=== PATIENT | female | born 1990 | race Caucasian/White ===

== ENCOUNTER 2018-08-13 17:40 | Inpatient (IN) ==
[2018-08-13] MEDS ORDERED: *HR* OxyCODONE/APAP 5/325 TABLET PO ONE (18:19)
[2018-08-13 18:53] LABS: Basophils % 0.2 %; Immature Granulocytes % 0.3 % (0-4); Monocytes # 0.7 K/mcL (0.0-1.3); Monocytes % 5.6 %
[2018-08-13] MEDS ORDERED: *HR* FentaNYL (PF) 100 MCG/2 ML VIAL IVP ONE (18:54)
[2018-08-13] MEDS ORDERED: Ondansetron 4 MG/2 ML VIAL IVP ONE (18:55)
--- NOTE | 2018-08-13 18:56 | Emergency Department Note ---
Disposition Clinical Impression: Abdominal pain Qualifiers: Abdominal location: generalized Qualified Code(s): R10.84 - Generalized abdominal pain Ovarian cyst Qualifiers: Laterality: right Qualified Code(s): N83.201 - Unspecified ovarian cyst, right side Disposition: Admitted As Inpatient Condition: Fair Referrals: Gertrude Browning LOG GRADER [Primary Care Provider] - Forms: ED Satisfaction Letter, Work/School Release Time of Disposition: 21:43 General Adult HPI - General Chief complaint: ED Abdominal Pain Stated complaint: abd pain Time Seen by Provider: 08/13/18 17:46 Source: patient Limitations: no limitations - History of Present Illness Pain Scale: 7 - Related Data Previous Rx's Medication Instructions Recorded Ondansetron ODT [Zofran ODT] 4 mg SL Q4HR PRN #20 tab.rapdis 08/12/18 Allergies Allergy/AdvReac Type Severity Reaction Status Date / Time No Known Allergies Allergy Verified 08/12/18 01:03 Past Medical History - Past Medical History Medical history: Reports: no medical history Psychiatric history: Reports: no psych history - Social History Smoking Status: Never smoker Smokeless Tobacco Status: No Alcohol use: Reports: none Drug use: Reports: none Physical Exam - General Limitations: no limitations General appearance: alert, in no apparent distress Course Vital Signs Temperature 98.2 F 08/13/18 17:42 Pulse Rate 121 08/13/18 17:42 Respiratory Rate 18 08/13/18 17:42 Blood Pressure 128/78 08/13/18 17:42 O2 Sat by Pulse Oximetry 95 08/13/18 17:42 Temperature 98.2 F 08/13/18 17:42 Pulse Rate 91 08/13/18 20:06 Respiratory Rate 16 08/13/18 20:06 Blood Pressure 117/83 08/13/18 20:06 O2 Sat by Pulse Oximetry 98 08/13/18 20:06 Oxygen Delivery Oxygen Delivery Room Air Medical Decision Making - Lab Data Result diagrams: 08/13/18 18:29 08/13/18 18:29 Lab Results 08/13/18 08/13/18 08/13/18 Range/Units 18:29 18:29 19:06 WBC 12.9 H (4.3-11.1) K/mcL RBC 5.06 H (3.82-4.97) M/mcL Hgb 11.3 L (11.5-15.4) g/dL Hct 36.8 (35.3-44.9) % MCV 72.7 L (83.0-100.0) fL MCH 22.3 L (28.0-33.3) pg MCHC 30.7 L (31.6-35.5) g/dL RDW 18.0 H (11.5-14.5) % Plt Count 299 (140-400) K/mcL MPV 10.3 (9.4-12.4) fL Immature Gran % 0.3 (0-4) % Seg Neutrophils % 80.8 % Lymphocytes % 12.1 % Monocytes % 5.6 % Eosinophils % 1.0 % Basophils % 0.2 % Neutrophils # 10.4 H (1.6-8.9) K/mcL Lymphocytes # 1.6 (0.6-4.6) K/mcL Monocytes # 0.7 (0.0-1.3) K/mcL Eosinophils # 0.1 (0.0-0.6) K/mcL Basophils # 0.0 (0.0-0.2) K/mcL Sodium 139 (136-145) mEq/L Potassium 3.7 (3.5-5.1) mEq/L Chloride 106 (98-107) mEq/L Carbon Dioxide 24 (23-29) mEq/L BUN 12 (6-20) mg/dL Creatinine 0.74 (0.60-1.20) mg/dL Est GFR ( Amer) > 60 (> 60) Est GFR (Non-Af Amer) > 60 (> 60) BUN/Creatinine Ratio 16 (6-26) Glucose 121 H (70-105) mg/dL Calculated Osmolality 289 (280-300) Lactic Acid 1.3 (0.5-2.2) mmol/L Calcium 9.0 (8.6-10.3) mg/dL Urine Color (Yellow) Urine Clarity (Clear) Urine pH (5.0-8.0) pH Units Ur Specific [place] (1.010-1.025) Urine Protein (Neg-Trace) mg/dL Urine Glucose (UA) (Normal) mg/dL Urine Ketones (Negative) mg/dL Urine Blood (Negative) Urine Nitrite (Negative) Urine Bilirubin (Negative) Urine Urobilinogen (Normal) mg/dL Ur Leukocyte Esterase (Negative) Urine Microscopic RBC (0-3) per hpf Urine Microscopic WBC (0-3) per hpf Ur Squamous Epith Cells (None-Few) per lpf Urine Bacteria (None-Few) per hpf Hyaline Casts (None-Few) per lpf Ur Culture Indicated? (NO) 08/13/18 Range/Units 19:11 WBC (4.3-11.1) K/mcL RBC (3.82-4.97) M/mcL Hgb (11.5-15.4) g/dL Hct (35.3-44.9) % MCV (83.0-100.0) fL MCH (28.0-33.3) pg MCHC (31.6-35.5) g/dL RDW (11.5-14.5) % Plt Count (140-400) K/mcL MPV (9.4-12.4) fL Immature Gran % (0-4) % Seg Neutrophils % % Lymphocytes % % Monocytes % % Eosinophils % % Basophils % % Neutrophils # (1.6-8.9) K/mcL Lymphocytes # (0.6-4.6) K/mcL Monocytes # (0.0-1.3) K/mcL Eosinophils # (0.0-0.6) K/mcL Basophils # (0.0-0.2) K/mcL Sodium (136-145) mEq/L Potassium (3.5-5.1) mEq/L Chloride (98-107) mEq/L Carbon Dioxide (23-29) mEq/L BUN (6-20) mg/dL Creatinine (0.60-1.20) mg/dL Est GFR ( Amer) (> 60) Est GFR (Non-Af Amer) (> 60) BUN/Creatinine Ratio (6-26) Glucose (70-105) mg/dL Calculated Osmolality (280-300) Lactic Acid (0.5-2.2) mmol/L Calcium (8.6-10.3) mg/dL Urine Color Yellow (Yellow) Urine Clarity Clear (Clear) Urine pH 6.0 (5.0-8.0) pH Units Ur Specific [place] 1.023 (1.010-1.025) Urine Protein Trace (Neg-Trace) mg/dL Urine Glucose (UA) Normal (Normal) mg/dL Urine Ketones 15 H (Negative) mg/dL Urine Blood Negative (Negative) Urine Nitrite Negative (Negative) Urine Bilirubin Negative (Negative) Urine Urobilinogen Normal (Normal) mg/dL Ur Leukocyte Esterase Negative (Negative) Urine Microscopic RBC 5-15 H (0-3) per hpf Urine Microscopic WBC 3-5 H (0-3) per hpf Ur Squamous Epith Cells Many H (None-Few) per lpf Urine Bacteria None Seen (None-Few) per hpf Hyaline Casts None Seen (None-Few) per lpf Ur Culture Indicated? NO (NO) Attestation Statement - Attestation Attestation: I, Jordy Marks DO, examined this patient [id number] and my medical decision-making was reviewed with Dr. Margot Wilcox, Resident Physician. I agree with the documented findings, disposition and treatment plan as described except to the extent set forth below. Please see my progress notes for details. 28-year-old female presents emergency room for persistently worsening abdominal pain. Patient was seen here within the last 24 hours and was diagnosed with a very large ovarian cyst. She has approximately 19.9 x 10.6 cm cyst in the right lower quadrant of the abdomen. Today she is unable able to urinate or have bowel movements. Her pain is persistently worsening. Patient denies any fevers or chills. She does not have any active nausea vomiting or diarrhea. Denies any headache or vision change. Lungs are clear. Right chest pain or shortness of breath. Patient's main complaint is abdominal discomfort. Denies any vaginal discharge. Physical exam shows an obese female some moderate distress. Lungs are clear heart is tachycardic but regular. Abdomen is distended with what is appreciated to be peritoneal-like symptoms. With light percussion of the abdomen the patient is wincing and crying. She does not allow light palpation anywhere causing abdominal wall. He wonders tract of the patient is having symptoms. Patient will have fluids nausea medication pain medication provided. Consultation was placed with the on-call obstetrics provider's prior to you and labs or imaging being resulted. CBC chemistry urinalysis blood cultures as well as lactic acid have been ordered at this time. First dose of antibiotics will be given with concern for peritonitis. The on-call obstetrics provider Juhi Lee reviewed the case and recommended repeat ultrasound to rule out torsion of this time. Patient has had symptoms at this point greater than 24 hours. Obstetrics evaluation will be completed in the emergency room. Concern is noted. Versus ruptured cyst versus progression of the cystic like lesion. Some of this could be supratentorial secondary to the patient's anxious-like presentation this time for definitive management will be determined after repeat imaging as well as symptomatic control are established. See detailed documentation of the physical exam, medical intervention, medical decision-making and disposition in the resident physician's note. No critical care pad the patient's treatment course at this time. 2114 Patient was evaluated by the obstetrics team Dr. Ness at the bedside. They are going over to review the ultrasound at this time and determine whether the patient is going to go to surgery at this time. Patient will be provided with a repeat dose of pain medication. Hemoglobin appears to be stable. Imaging modalities pending. Otherwise no other acute findings at this point. Disposition to be determined once the imaging modality has been completed. Expectation is that the patient will stay in the hospital for pain control and surgical intervention. 2134 Patient will go to surgery here tonight. Patient will be admitted to the obstetrics team. Admission process will be established at this time. No other concerns or issues. Patient is otherwise clinically stable. Antibiotics were not provided here in the emergency room. They will be given by the operative physician in the operating suite. Patient is otherwise clinically stable. Peritoneal-like symptoms do not appear to be secondary to infection at this time. Disposition will be admission for surgical intervention. Lactic acid and blood cultures were collected in the lactic acid is normal.
[2018-08-13 18:57] LABS: Eosinophils # 0.1 K/mcL (0.0-0.6); Hematocrit 36.8 % (35.3-44.9); Hemoglobin 11.3 g/dL (11.5-15.4); Lymphocytes # 1.6 K/mcL (0.6-4.6); Lymphocytes % 12.1 %; Mean Corpuscular HGB Conc 30.7 g/dL (31.6-35.5); Mean Corpuscular Hemoglobin 22.3 pg (28.0-33.3); Mean Corpuscular Volume 72.7 fL (83.0-100.0); Mean Platelet Volume 10.3 fL (9.4-12.4); Neutrophils # 10.4 K/mcL (1.6-8.9); Platelet Count 299 K/mcL (140-400); Red Blood Count 5.06 M/mcL (3.82-4.97); Segmented Neutrophils % 80.8 %
[2018-08-13 19:01] LABS: BUN/Creatinine Ratio 16 (6-26); Blood Urea Nitrogen 12 mg/dL (6-20); Carbon Dioxide 24 mEq/L (23-29); Chloride 106 mEq/L (98-107); Glucose 121 mg/dL (70-105); Osmolality,Calculated 289 (280-300); Potassium 3.7 mEq/L (3.5-5.1); Sodium 139 mEq/L (136-145); eGFR For Non-African Americans > 60 (> 60)
--- NOTE | 2018-08-13 19:26 | Emergency Department Note ---
Disposition Clinical Impression: Abdominal pain Qualifiers: Abdominal location: generalized Qualified Code(s): R10.84 - Generalized abdominal pain Disposition: Admitted As Inpatient Condition: Fair Referrals: Gertrude Browning CNP [Primary Care Provider] - Forms: ED Satisfaction Letter, Work/School Release Abdominal Pain HPI - General Chief Complaint: ED Abdominal Pain Stated Complaint: abd pain Time Seen by Provider: 08/13/18 17:46 Source: patient, family Mode of arrival: private vehicle Limitations: no limitations Nursing Notes Reviewed: Yes Vital Signs Reviewed: Yes - History of Present Illness HPI Narrative: Patient is a 28-year-old female that was evaluated at this facility 2 days ago and sent home at 7 AM on Wednesday morning diagnosed with a ovarian cyst and instructed to follow-up with OB. Patient states that she was able to sleep throughout the day on Wednesday after being given pain medication in the emergency department but last evening developed increasing pain, constipation, and diffi culty voiding. Patient has not had an opportunity to follow up with OB, but has returned due to concerns that the large cyst they found during her work-up during her last presentation could be causing her symptoms. Pt denies fever/chills, chest pain/difficulty breathing, nausea/vomiting, numbness or tingling anywhere. Pain Scale: 7 - Related Data Previous Rx's Medication Instructions Recorded Ondansetron ODT [Zofran ODT] 4 mg SL Q4HR PRN #20 tab.rapdis 08/12/18 Allergies Allergy/AdvReac Type Severity Reaction Status Date / Time No Known Allergies Allergy Verified 08/12/18 01:03 All systems ED: reviewed and negative except as stated. Review of Systems: As Per HPI Constitutional: Denies: fever, chills Cardiovascular: Denies: chest pain Respiratory: Denies: cough Gastrointestinal: Reports: abdominal pain, constipation. Denies: nausea, vomiting Genitourinary: Reports: other (feeling of incomplete emptying) Musculoskeletal: Denies: back pain Neurological: Denies: headache Abdominal Pain PMH - Past Medical History Medical history: Reports: no medical history Female Surgical History: Reports: no surgical history Psychiatric history: Reports: no psych history - Social History Smoking status: Never smoker Alcohol use: Reports: none Drug use: Reports: none Physical Exam - General Limitations: no limitations General appearance: alert, in no apparent distress - Head Head exam: atraumatic, normocephalic - Eye Eye exam: Present: normal appearance, PERRL, EOMI - ENT ENT exam: normal exam, normal oropharynx, mucous membranes moist - Neck Neck exam: Present: normal inspection, full ROM - Chest Chest inspection: Present: normal inspection, symmetric chest wall rise - Respiratory Respiratory exam: Present: normal lung sounds bilaterally. Absent: respiratory distress, wheezes - Cardiovascular Cardiovascular exam: Present: regular rate, normal rhythm - Abdominal Exam Abdominal exam: Present: soft, tenderness. Absent: rigidity (pt is exquisitely tender to even light palpation) Abdominal tenderness: Present: RUQ, LUQ, LLQ, epigastrium - Extremities Exam Extremities exam: Present: normal inspection, full ROM - Neurological Exam Neurological exam: Present: alert, oriented X3 - Psychiatric Psychiatric exam: Present: normal affect, anxious - Skin Skin exam: Present: warm, dry, intact Course Course Narrative: During pt's last visit, a [id number] cyst was found through ultrasound on her right ovary. With continued pain and now urinary retention with constipation, there is concern that her cyst could be placing pressure on her bowel/bladder. Additionally, with the size of the cyst, it is at higher risk for torsion. Will repeat blood work, repeat ultrasound with doppler to r/o torsion. Will place IV and adequately control pain. Vital Signs Temperature 98.2 F 08/13/18 17:42 Pulse Rate 121 08/13/18 17:42 Respiratory Rate 18 08/13/18 17:42 Blood Pressure 128/78 08/13/18 17:42 O2 Sat by Pulse Oximetry 95 08/13/18 17:42 Temperature 98.2 F 08/13/18 17:42 Pulse Rate 91 08/13/18 20:06 Respiratory Rate 16 08/13/18 20:06 Blood Pressure 117/83 08/13/18 20:06 O2 Sat by Pulse Oximetry 98 08/13/18 20:06 Oxygen Delivery Oxygen Delivery Room Air Abdominal Pain - MDM Narrative Medical decision making narrative: Pt was seen at this facility between and Wednesday and diagnosed with a [id number] ovarian cyst. Over the next 24-48 hours, she developed increasing pain as well as difficulty urinating and constipation. Pt was evaluated bedside by lasting machine operator who requested a repeat US to r/o torsion. Dr. Ness was seen in the department shortly after who expressed his desire to admit the patient and surgically explore the abdomen and remove the cyst. Pt and family were in agreement with the plan. Pt and family were given an opportunity to ask questions and all of their concerns were addressed. Pt remained stable while in the department. - Differential Diagnosis Differential Diagnosis: Likely: abdominal pain non-specific - Medical Records Medical records reviewed: Yes I reviewed the patient's medical records. - Lab Data Lab results reviewed: Yes I reviewed the patient's lab results. Result diagrams: 08/13/18 18:29 08/13/18 18:29 Lab Results 08/13/18 08/13/18 08/13/18 Range/Units 18:29 18:29 19:06 WBC 12.9 H (4.3-11.1) K/mcL RBC 5.06 H (3.82-4.97) M/mcL Hgb 11.3 L (11.5-15.4) g/dL Hct 36.8 (35.3-44.9) % MCV 72.7 L (83.0-100.0) fL MCH 22.3 L (28.0-33.3) pg MCHC 30.7 L (31.6-35.5) g/dL RDW 18.0 H (11.5-14.5) % Plt Count 299 (140-400) K/mcL MPV 10.3 (9.4-12.4) fL Immature Gran % 0.3 (0-4) % Seg Neutrophils % 80.8 % Lymphocytes % 12.1 % Monocytes % 5.6 % Eosinophils % 1.0 % Basophils % 0.2 % Neutrophils # 10.4 H (1.6-8.9) K/mcL Lymphocytes # 1.6 (0.6-4.6) K/mcL Monocytes # 0.7 (0.0-1.3) K/mcL Eosinophils # 0.1 (0.0-0.6) K/mcL Basophils # 0.0 (0.0-0.2) K/mcL Sodium 139 (136-145) mEq/L Potassium 3.7 (3.5-5.1) mEq/L Chloride 106 (98-107) mEq/L Carbon Dioxide 24 (23-29) mEq/L BUN 12 (6-20) mg/dL Creatinine 0.74 (0.60-1.20) mg/dL Est GFR ( Amer) > 60 (> 60) Est GFR (Non-Af Amer) > 60 (> 60) BUN/Creatinine Ratio 16 (6-26) Glucose 121 H (70-105) mg/dL Calculated Osmolality 289 (280-300) Lactic Acid 1.3 (0.5-2.2) mmol/L Calcium 9.0 (8.6-10.3) mg/dL Urine Color (Yellow) Urine Clarity (Clear) Urine pH (5.0-8.0) pH Units Ur Specific [place] (1.010-1.025) Urine Protein (Neg-Trace) mg/dL Urine Glucose (UA) (Normal) mg/dL Urine Ketones (Negative) mg/dL Urine Blood (Negative) Urine Nitrite (Negative) Urine Bilirubin (Negative) Urine Urobilinogen (Normal) mg/dL Ur Leukocyte Esterase (Negative) Urine Microscopic RBC (0-3) per hpf Urine Microscopic WBC (0-3) per hpf Ur Squamous Epith Cells (None-Few) per lpf Urine Bacteria (None-Few) per hpf Hyaline Casts (None-Few) per lpf Ur Culture Indicated? (NO) 08/13/18 Range/Units 19:11 WBC (4.3-11.1) K/mcL RBC (3.82-4.97) M/mcL Hgb (11.5-15.4) g/dL Hct (35.3-44.9) % MCV (83.0-100.0) fL MCH (28.0-33.3) pg MCHC (31.6-35.5) g/dL RDW (11.5-14.5) % Plt Count (140-400) K/mcL MPV (9.4-12.4) fL Immature Gran % (0-4) % Seg Neutrophils % % Lymphocytes % % Monocytes % % Eosinophils % % Basophils % % Neutrophils # (1.6-8.9) K/mcL Lymphocytes # (0.6-4.6) K/mcL Monocytes # (0.0-1.3) K/mcL Eosinophils # (0.0-0.6) K/mcL Basophils # (0.0-0.2) K/mcL Sodium (136-145) mEq/L Potassium (3.5-5.1) mEq/L Chloride (98-107) mEq/L Carbon Dioxide (23-29) mEq/L BUN (6-20) mg/dL Creatinine (0.60-1.20) mg/dL Est GFR ( Amer) (> 60) Est GFR (Non-Af Amer) (> 60) BUN/Creatinine Ratio (6-26) Glucose (70-105) mg/dL Calculated Osmolality (280-300) Lactic Acid (0.5-2.2) mmol/L Calcium (8.6-10.3) mg/dL Urine Color Yellow (Yellow) Urine Clarity Clear (Clear) Urine pH 6.0 (5.0-8.0) pH Units Ur Specific [place] 1.023 (1.010-1.025) Urine Protein Trace (Neg-Trace) mg/dL Urine Glucose (UA) Normal (Normal) mg/dL Urine Ketones 15 H (Negative) mg/dL Urine Blood Negative (Negative) Urine Nitrite Negative (Negative) Urine Bilirubin Negative (Negative) Urine Urobilinogen Normal (Normal) mg/dL Ur Leukocyte Esterase Negative (Negative) Urine Microscopic RBC 5-15 H (0-3) per hpf Urine Microscopic WBC 3-5 H (0-3) per hpf Ur Squamous Epith Cells Many H (None-Few) per lpf Urine Bacteria None Seen (None-Few) per hpf Hyaline Casts None Seen (None-Few) per lpf Ur Culture Indicated? NO (NO) Attestation Statement - Attestation Attestation: I, Jordy Marks DO, examined this patient [id number] and my medical decision-making was reviewed with Dr. Margot Wilcox, Resident Physician. I agree with the documented findings, disposition and treatment plan as described except to the extent set forth below. Please see my progress notes for details.
[2018-08-13 19:36] LABS: Bilirubin,Urine Negative (Negative); Blood,Urine Negative (Negative); Clarity,Urine Clear (Clear); Color,Urine Yellow (Yellow); Glucose,Urine (UA) Normal (Normal); Ketones,Urine 15 mg/dL (Negative); Leukocyte Esterase,Urine Negative (Negative); Nitrite,Urine Negative (Negative); Protein,Urine Trace mg/dL (Neg-Trace); Specific Gravity,Urine 1.023 (1.010-1.025); Urobilinogen,Urine Normal (Normal)
[2018-08-13 19:42] LABS: Bacteria,Urine None Seen per hpf (None-Few); Hyaline Casts,Urine None Seen per lpf (None-Few); Squamous Epithelial Cell,Urine Many per lpf (None-Few)
[2018-08-13] MEDS ORDERED: *HR* HYDROmorphone (PF) 1 MG/ML SYRINGE IVP ONE (21:20)
--- NOTE | 2018-08-13 21:28 | OB/GYN History & Physical ---
Date of Encounter: 08/13/18 Time of Encounter: 21:23 Assessment and Plan (1) Abdominal pain Current visit: Yes Status: Acute Ultrasound for torsion given large ovarian cyst. Qualifiers: Abdominal location: generalized Qualified Code(s): R10.84 - Generalized abdominal pain (2) Nausea & vomiting Current visit: No Status: Acute Qualifiers: Vomiting type: unspecified Vomiting Intractability: non-intractable Qualified Code(s): R11.2 - Nausea with vomiting, unspecified (3) Ovarian cyst Current visit: Yes Status: Acute Ultrasound to rule out torsion. NPO Pain medication PRN Plan for laparoscopic vs open removal of pelvic mass and possible oophorectomy Plan per Dr. Ness who has seen and examined patient independent of this exam. Informed consent obtained per Dr. Ness Patient's Mother at Bedside Qualifiers: Laterality: right Qualified Code(s): N83.201 - Unspecified ovarian cyst, right side History of Present Illness Chief complaint: abdominal pain HPI: Ms. Teague is a 28 year old female who presented to the ER 2 days ago with abdominal pain and was found to have a 19cm cyst on her right ovary. She was discharged home to follow-up outpatient. She returned to the ER tonight with increased abdominal pain and difficulty urinating. She reports inability to pass stool. She states she has never been sexually active. Is currently on her cycle. She takes Ortho-Tricylcen Lo. She denies n/v. Past Med Surg Social Fam HX - Past Medical History Medical history: no medical history Additional medical history: kidney stones Psychiatric history: no psych history - Past Surgical History Surgical History: no surgical history - Social History Smoking Status: Never smoker Smokeless Tobacco Status: No Alcohol use: none Drug use: none Obstetrical History - Pregnancies : 0 Para: 0 Medications and Allergies Ondansetron ODT [Zofran ODT] 4 mg SL Q4HR PRN #20 tab.rapdis 08/12/18 [Rx] Allergy/AdvReac Type Severity Reaction Status Date / Time No Known Allergies Allergy Verified 08/12/18 01:03 Review of System OB All systems PM: reviewed and no additional remarkable complaints except as stated - Gastrointestinal Gastrointestinal: abdominal pain, change in bowel habits, no nausea, no vomiting - Genitourinary Genitourinary: difficulty urinating, pelvic pain, no dysuria - Menstruation Menstruation: currently menstrual - Integumentary Integumentary: dry skin Exam - Vital Signs Vital signs: Initial Vital Signs Temp Pulse Resp BP Pulse Ox 98.2 F 121 18 128/78 95 08/13/18 17:42 08/13/18 17:42 08/13/18 17:42 08/13/18 17:42 08/13/18 17:42 - Constitutional Constitutional: moderate distress, morbidly obese - Lungs Respiratory exam: CTAB - Cardiovascular Cardiovascular exam: RRR - Abdomen Abdomen: Present: bowel sounds normal, diffuse tenderness - Extremities Extremities exam: normal capillary refill, normal inspection Deep Tendon Reflex Grade: 2+ Normal Results Result Diagrams: 08/13/18 18:29 08/13/18 18:29 Abnormal lab results WBC 12.9 K/mcL (4.3-11.1) H 08/13/18 18:29 RBC 5.06 M/mcL (3.82-4.97) H 08/13/18 18:29 Hgb 11.3 g/dL (11.5-15.4) L 08/13/18 18:29 MCV 72.7 fL (83.0-100.0) L 08/13/18 18:29 MCH 22.3 pg (28.0-33.3) L 08/13/18 18:29 MCHC 30.7 g/dL (31.6-35.5) L 08/13/18 18:29 RDW 18.0 % (11.5-14.5) H 08/13/18 18:29 Neutrophils # 10.4 K/mcL (1.6-8.9) H 08/13/18 18:29 Glucose 121 mg/dL (70-105) H 08/13/18 18:29 Urine Ketones 15 mg/dL (Negative) H 08/13/18 19:11 Urine Microscopic RBC 5-15 per hpf (0-3) H 08/13/18 19:11 Urine Microscopic WBC 3-5 per hpf (0-3) H 08/13/18 19:11 Ur Squamous Epith Cells Many per lpf (None-Few) H 08/13/18 19:11 All other labs normal.
--- NOTE | 2018-08-13 21:58 | Anesthesia Evaluation PreOp ---
Date of Encounter: 08/13/18 Time of Encounter: 21:56 - Past History Planned Operation: Removal of pelvic mass Cardiac History: Denies any Significant Hx Pulmonary History: Denies Any Significant HX RADIOLOGY PHYSICIAN ASSISTANT History: Denies Any Significant HX Other Medical History: Other (21cm ovarian cyst, BMI 48) Anesthesia History: Past Anesthesia (none, no known hx of anes complications) Test: Negative (08/12/17) Alcohol Use: none Drug use: none Medications and Allergies Ondansetron ODT [Zofran ODT] 4 mg SL Q4HR PRN #20 tab.rapdis 08/12/18 [Rx] Allergy/AdvReac Type Severity Reaction Status Date / Time No Known Allergies Allergy Verified 08/12/18 01:03 - Meds/Allergy Pre-op Review Medications Reviewed: Yes Allergies Reviewed: Yes Beta Blockers on Current Med List: No Anesthesia Results - Labs 08/13/18 18:29 08/13/18 18:29 Anesthesia Exam Vital Signs/O2 Sat, Most Current Temp Pulse Resp BP Pulse Ox 98.2 F 104 18 111/65 96 08/13/18 17:42 08/13/18 21:43 08/13/18 21:43 08/13/18 21:43 08/13/18 21:43 Height: 1.65m Weight: 132kg NPO (# of Hours): acute abd - HEENT Pupil (Motor): Pupils equal, EOMI Mallampati: III Teeth: Normal Oral Opening: Greater than 3 - RADIOLOGY PHYSICIAN ASSISTANT LOC: Oriented RADIOLOGY PHYSICIAN ASSISTANT Motor: Normal RUE, Normal LUE, Normal RLE, Normal LLE, Normal Face RADIOLOGY PHYSICIAN ASSISTANT Sensory: Normal: RUE, LUE, RLE, LLE, Face - Cardiac Rhythm: Regular - Pulmonary Breath Sounds: bilateral Clear Respiratory Effort: Symmetrical Anesthesia Assess/Plan ASA Score: 3, E Level of consciousness: Cooperative Anesthetic Plan: General Monitoring Plan: Standard Monitors Recovery Plan: PACU
[2018-08-13] MEDS ORDERED: Lidocaine -MPF 2% 2 ML VIAL ONE (22:05)
[2018-08-13] MEDS ORDERED: Lidocaine -MPF 4% 5 ML AMPUL ONE (22:05)
[2018-08-13] MEDS ORDERED: *HR* FentaNYL (PF) 100 MCG/2 ML VIAL ONE (22:05)
[2018-08-13] MEDS ORDERED: *HR* Succinylcholine 200 MG/10 ML VIAL IVP ONE (22:05)
[2018-08-13] MEDS ORDERED: *HR* Propofol 200 MG/20 ML VIAL IVP ONE (22:05)
[2018-08-13] MEDS ORDERED: Dexamethasone 4 MG/ML VIAL ONE ×2 (22:05→23:30)
[2018-08-13] MEDS ORDERED: *HR* Rocuronium Bromide 50 MG/5 ML VIAL ONE (22:05)
[2018-08-13] MEDS ORDERED: Ondansetron 4 MG/2 ML VIAL ONE (22:05)
[2018-08-13] MEDS ORDERED: *HR* Promethazine 25 MG/ML VIAL IVP PRN (22:37)
[2018-08-13] MEDS ORDERED: *HR* HYDROmorphone (PF) 1 MG/ML SYRINGE IVP PRN (22:37)
[2018-08-13] MEDS ORDERED: *HR* OxyCODONE Immed Rel 5 MG TABLET PO PRN (22:37)
[2018-08-13] MEDS ORDERED: *HR* Meperidine 25 MG/ML SYRINGE IVP PRN (22:37)
[2018-08-13] MEDS ORDERED: Acetaminophen IV 1,000 MG/100 ML INFUS..BTL ONE (22:44)
[2018-08-13] MEDS ORDERED: Ringers Solution, Lactated 1,000 ML IVC SCH (22:45)
[2018-08-13] MEDS ORDERED: Bupivacaine/EPI 1:200k 0.25%PF 10 ML VIAL INFILT ONE (23:03)
[2018-08-13] MEDS ORDERED: *HR* Belladonna Alkaloids/Opium 30 MG RECTAL SUPPOSITORY RC ONE (23:03)
[2018-08-14] MEDS ORDERED: Neostigmine Methylsulfate 3 MG/3 ML SYRINGE ONE (00:11)
[2018-08-14] MEDS ORDERED: Ketorolac 30 MG/ML VIAL ONE (00:13)
--- NOTE | 2018-08-14 00:52 | OB/GYN Procedure Note ---
OB-FINISHING OPERATOR: Procedure - Diagnosis Date of procedure: 08/14/18 Pre-op diagnosis: Pelvic mass Post-op diagnosis: same (Right ovarian torsion) - Procedure Procedure: Exploratory laparotomy, removal pelvic mass, RSO Surgeon: Richard Ness Was there an support assistant present: No Anesthesia provider: Leda Arguello Anesthesia Type: General Estimated blood loss (cc): 50 Fluids: crystalloid Procedure Complications: none Specimens collected: Right tube and ovary Disposition: PACU Findings: A large hemorrhagic mass associated with the right tube and ovary. Was at least 20 cm. The infundibulopelvic ligament was twisted 3 consistent with torsion. Narrative: Patient taken to the operating room. After satisfactory anesthesia was achieved patient placed in supine position and prepped and draped in usual manner. After appropriate timeout was obtained, the abdomen was entered through a midline incision. The mass was identified. Infundibulopelvic ligament was coagulated and cut. The mass was removed and sent to pathology for analysis. After assurance hemostasis, fascia closed with looped PDS 0. Skin clips were applied to skin. Subcutaneous had been reapproximated with a 2-0 Vicryl. Sterile dressing was applied. Patient did well was taken to recovery in satisfactory condition. Counts were correct.
[2018-08-14] MEDS ORDERED: Ondansetron 4 MG/2 ML VIAL IVP PRN (00:59)
[2018-08-14] MEDS ORDERED: *HR* HYDROmorphone 20 MG/20 ML PCA IVC PRN (00:59)
[2018-08-14] MEDS ORDERED: Ondansetron ODT 4 MG TAB.RAPDIS SL PRN (00:59)
[2018-08-14] MEDS ORDERED: Naloxone 0.4 MG/ML INJ IVP PRN (00:59)
[2018-08-14] MEDS ORDERED: *HR* OxyCODONE/APAP 5/325 TABLET PO PRN (00:59)
--- NOTE | 2018-08-14 01:28 | Anesthesia Evaluation Post Op ---
Date of Encounter: 08/14/18 Time of Encounter: : - Vital Signs Vital Signs: Vital Signs/O2 Sat, Most Current Temp Pulse Resp BP Pulse Ox 97.8 F 87 14 127/80 95 08/14/18 01:21 08/14/18 01:21 08/14/18 01:21 08/14/18 01:21 08/14/18 01:21 - Lungs Lungs: Clear Ascult./Percussion - Airway Airway: Non-obstructed - Cardiovascular Regular Rate - Mental Status Mental Status: Alert & Oriented, Answers Appropriately - Pain Pain Scale: 0 - Nausea Vomiting Nausea Vomiting: Not Present - Hydration Hydration: Ice chips, [place] catheter - Discharge PostOp Status: Transfer Patient to floor
[2018-08-14] MEDS ORDERED: Ringers Solution, Lactated 1,000 ML ONE (04:40)
--- NOTE | 2018-08-14 08:00 | OB/GYN Progress Note ---
Date of Encounter: 08/14/18 Time of Encounter: 07:58 - Assessment and Plan (1) Ovarian cyst Current Visit: Yes Status: Resolved Qualifiers: Laterality: right Qualified Code(s): N83.201 - Unspecified ovarian cyst, right side Subjective - Subjective Patient reports: pain well controlled Objective - Vital Signs Latest vital signs: Vital Signs Temp Pulse Resp BP Pulse Ox 08/14/18 06:14 98.1 F 78 16 103/69 96 08/14/18 04:45 98.1 F 71 16 107/69 95 08/14/18 03:40 98.3 F 83 14 106/71 96 08/14/18 03:10 98.1 F 76 16 111/71 96 08/14/18 02:21 98.1 F 76 18 115/74 94 08/14/18 01:21 97.8 F 87 14 127/80 95 08/14/18 01:11 77 16 125/75 94 08/14/18 01:01 79 16 128/77 93 08/14/18 00:51 97.4 F L 106 16 127/73 93 08/13/18 22:37 18 126/72 08/13/18 21:43 104 18 111/65 96 08/13/18 20:55 95 18 117/83 98 08/13/18 20:06 91 16 117/83 98 08/13/18 19:35 97 18 121/79 93 08/13/18 17:42 98.2 F 121 18 128/78 95 Intake and Output 08/13/18 08/13/18 08/14/18 15:59 23:59 07:59 Output Total 300 / 300 Balance -300 / -300 Output: Estimated Blood Loss 50 / 50 Catheter 250 / 250 Other: Weight 132.903 kg - I&O's I&O's: Intake & Output 08/11/18 08/12/18 08/13/18 08/14/18 23:59 23:59 23:59 23:59 Output Total 300 / 300 Balance -300 / -300 Weight 132.903 kg - Exam Chest: Normal S1, Normal S2 Extremities: Present: normal Abdomen: Present: normal appearance, soft Incision OB: Present: intact - Labs Labs: Abnormal lab results WBC 12.9 K/mcL (4.3-11.1) H 08/13/18 18:29 RBC 5.06 M/mcL (3.82-4.97) H 08/13/18 18:29 Hgb 11.3 g/dL (11.5-15.4) L 08/13/18 18:29 MCV 72.7 fL (83.0-100.0) L 08/13/18 18:29 MCH 22.3 pg (28.0-33.3) L 08/13/18 18: MCHC 30.7 g/dL (31.6-35.5) L 08/13/18 18:29 RDW 18.0 % (11.5-14.5) H 08/13/18 18:29 Neutrophils # 10.4 K/mcL (1.6-8.9) H 08/13/18 18:29 Glucose 121 mg/dL (70-105) H 08/13/18 18:29 Urine Ketones 15 mg/dL (Negative) H 08/13/18 19:11 Urine Microscopic RBC 5-15 per hpf (0-3) H 08/13/18 19:11 Urine Microscopic WBC 3-5 per hpf (0-3) H 08/13/18 19:11 Ur Squamous Epith Cells Many per lpf (None-Few) H 08/13/18 19:11 Consult Discharge Plan - Plan Referrals: Gertrude Browning, IMPLEMENTATION PROJECT COORDINATOR [Primary Care Provider] -
[2018-08-14] MEDS: *HR* HYDROcodone/Acet 5/325 mg TABLET PO PRN ×2 (10:15→19:04)
[2018-08-14 10:37] LABS: Basophils % 0.1 %; Hematocrit 33.3 % (35.3-44.9); Hemoglobin 10.2 g/dL (11.5-15.4); Immature Granulocytes % 0.3 % (0-4); Lymphocytes # 0.5 K/mcL (0.6-4.6); Lymphocytes % 3.5 %; Mean Corpuscular HGB Conc 30.6 g/dL (31.6-35.5); Mean Corpuscular Hemoglobin 22.2 pg (28.0-33.3); Mean Corpuscular Volume 72.5 fL (83.0-100.0); Mean Platelet Volume 10.7 fL (9.4-12.4); Monocytes # 0.5 K/mcL (0.0-1.3); Monocytes % 3.2 %; Neutrophils # 13.5 K/mcL (1.6-8.9); Platelet Count 311 K/mcL (140-400); Red Blood Count 4.59 M/mcL (3.82-4.97); Red Cell Distribution Width 17.8 % (11.5-14.5); Segmented Neutrophils % 92.9 %
[2018-08-15] MEDS: *HR* HYDROcodone/Acet 5/325 mg TABLET PO PRN (00:25)
[2018-08-15 08:18] VITALS: BP 111/73
--- NOTE | 2018-08-15 08:19 | Discharge Summary ---
Date of Encounter: 08/15/18 Time of Encounter: 08:19 - Discharge Diagnosis (1) Ovarian cyst Priority: Primary Status: Resolved Qualifiers: Laterality: right Qualified Code(s): N83.201 - Unspecified ovarian cyst, right side (2) Abdominal pain Priority: Secondary Status: Acute Qualifiers: Abdominal location: generalized Qualified Code(s): R10.84 - Generalized abdominal pain - Discharge Medications Prescriptions: HYDROcodone/Acet 5/325 mg [[place] 5-325 mg] 1 tab PO Q4HR PRN 7 Days #28 tablet PRN Reason: Moderate Pain (4-6) OxyCODONE/APAP 5/325 [Percocet 5/325 MG] 1 each PO Q4HR PRN 7 Days #28 tablet PRN Reason: Severe Pain (7-10) Docusate [Colace] 200 mg PO DAILY 14 Days #60 capsule Home Medications: Ondansetron ODT [Zofran ODT] 4 mg SL Q4HR PRN #20 tab.rapdis 08/12/18 [Rx] Docusate [Colace] 200 mg PO DAILY 14 Days #60 capsule 08/15/18 [Rx] HYDROcodone/Acet 5/325 mg [[place] 5-325 mg] 1 tab PO Q4HR PRN 7 Days #28 tablet 08/15/18 [Rx] OxyCODONE/APAP 5/325 [Percocet 5/325 MG] 1 each PO Q4HR PRN 7 Days #28 tablet 08/15/18 [Rx] Allergies/Adverse Reactions: Allergy/AdvReac Type Severity Reaction Status Date / Time No Known Allergies Allergy Verified 08/12/18 01:03 Data Procedures and tests throughout hospitalization: Laboratory Tests 08/13/18 08/13/18 08/13/18 18:29 18:29 19:06 WBC 12.9 H RBC 5.06 H Hgb 11.3 L Hct 36.8 MCV 72.7 L MCH 22.3 L MCHC 30.7 L RDW 18.0 H Plt Count 299 MPV 10.3 Immature Gran % 0.3 Seg Neutrophils % 80.8 Lymphocytes % 12.1 Monocytes % 5.6 Eosinophils % 1.0 Basophils % 0.2 Neutrophils # 10.4 H Lymphocytes # 1.6 Monocytes # 0.7 Eosinophils # 0.1 Basophils # 0.0 Sodium 139 Potassium 3.7 Chloride 106 Carbon Dioxide 24 BUN 12 Creatinine 0.74 Est GFR ( Amer) > 60 Est GFR (Non-Af Amer) > 60 BUN/Creatinine Ratio 16 Glucose 121 H Calculated Osmolality 289 Lactic Acid 1.3 Calcium 9.0 Urine Color Urine Clarity Urine pH Ur Specific [place] Urine Protein Urine Glucose (UA) Urine Ketones Urine Blood Urine Nitrite Urine Bilirubin Urine Urobilinogen Ur Leukocyte Esterase Urine Microscopic RBC Urine Microscopic WBC Ur Squamous Epith Cells Urine Bacteria Hyaline Casts Ur Culture Indicated? 08/13/18 08/14/18 19:11 10:17 WBC 14.5 H RBC 4.59 Hgb 10.2 L Hct 33.3 L MCV 72.5 L MCH 22.2 L MCHC 30.6 L RDW 17.8 H Plt Count 311 MPV 10.7 Immature Gran % 0.3 Seg Neutrophils % 92.9 Lymphocytes % 3.5 Monocytes % 3.2 Eosinophils % 0.0 Basophils % 0.1 Neutrophils # 13.5 H Lymphocytes # 0.5 L Monocytes # 0.5 Eosinophils # 0.0 Basophils # 0.0 Sodium Potassium Chloride Carbon Dioxide BUN Creatinine Est GFR ( Amer) Est GFR (Non-Af Amer) BUN/Creatinine Ratio Glucose Calculated Osmolality Lactic Acid Calcium Urine Color Yellow Urine Clarity Clear Urine pH 6.0 Ur Specific [place] 1.023 Urine Protein Trace Urine Glucose (UA) Normal Urine Ketones 15 H Urine Blood Negative Urine Nitrite Negative Urine Bilirubin Negative Urine Urobilinogen Normal Ur Leukocyte Esterase Negative Urine Microscopic RBC 5-15 H Urine Microscopic WBC 3-5 H Ur Squamous Epith Cells Many H Urine Bacteria None Seen Hyaline Casts None Seen Ur Culture Indicated? NO Labs on day of discharge: Labs from last 24 hours 08/14/18 10:17 WBC 14.5 H RBC 4.59 Hgb 10.2 L Hct 33.3 L MCV 72.5 L MCH 22.2 L MCHC 30.6 L RDW 17.8 H Plt Count 311 MPV 10.7 Immature Gran % 0.3 Seg Neutrophils % 92.9 Lymphocytes % 3.5 Monocytes % 3.2 Eosinophils % 0.0 Basophils % 0.1 Neutrophils # 13.5 H Lymphocytes # 0.5 L Monocytes # 0.5 Eosinophils # 0.0 Basophils # 0.0 Preliminary micro results at discharge 08/13/18 19:06 Blood Culture - Preliminary Peripheral Venipuncture Culture is incubating and being continuously monitored for growth. Final report to follow. 08/13/18 19:13 Blood Culture - Preliminary Peripheral Venipuncture Culture is incubating and being continuously monitored for growth. Final report to follow. - Impressions ITS Impressions Pelvis Ultrasound 08/13/18 18:45 IMPRESSION: No evidence of ovarian torsion involving the right ovary. Left ovary could not be visualized. Cystic masslike lesion of the right-sided pelvis measuring at least 20 cm, recently demonstrated on CT and pelvic ultrasound imaging. Surgical consultation recommended. Normal Doppler flow within the ovaries. D/ / Jovani Aguirre MD / Jovani Aguirre MD Interpreting Provider: Jovani Aguirre MD Date of admission: 08/14/18 00:59 Primary care physician: Gertrude Browning CNP - Patient Status Disposition: Home, Self-Care Condition: Fair Functional capacity at discharge: independent ambulation Overall status at discharge: patient is progressing back to baseline - Discharge Instructions Follow Up With: Gertrude Browning CNP [Primary Care Provider] - - Diet and Activity Activity: increase activity as tolerated Diet: advance to your usual diet Hospital Course REFINISH TECHNICIAN Time Attestation: Total time spent providing and/or coordinating discharge services: Exam - Constitutional Vitals: Temp Pulse Resp BP Pulse Ox 98.5 F 81 14 90/60 94 08/15/18 04:58 08/15/18 04:58 08/15/18 04:58 08/15/18 04:58 08/15/18 04:58 General appearance IM: A&O X 3 - Respiratory Respiratory exam: Present: CTAB - Cardiovascular Cardiovascular exam IM: Present: RRR - GI/Abdominal GI/Abdominal exam IM: normal bowel sounds, soft Incision: normal, intact - Extremities Exam Extremities exam IM: Present: full ROM - Neurological Exam Neurological exam: CN II-XII intact - VTE Documentation of Mechanical Device: Intermittent pneumatic compression device - Attending Attestation juani barber md [email or web address]
== END 2018-08-15 09:45 | disposition home or self-care (01) | DRG 513 ==
LOC: EMEROOARM 17:40 → 1NENUOBS 17:40
PROVIDERS: ADMIT Obstetrics & Gynecology; ATTEND Obstetrics & Gynecology